=== PATIENT | male | born 1975 | race Caucasian/White ===

== ENCOUNTER 2020-09-25 08:31 | Emergency (ER) | payer BC ==
[2020-09-25 08:51] VITALS: BMI 35.9
[2020-09-25 11:25] VITALS: BP 98/66; PULSE 108; TEMP 99.1
[2020-09-25 11:47] LABS: CRYSTALS,SYNOVIAL FLUID POSITIVE
[2020-09-25 14:21] LABS: BF WBC & OTHER NUCLEATED CELLS 74794 /mm3; BODY FLUID MACROPHAGES 1 %; BODY FLUID MONOCYTE 9 %
== END 2020-09-25 12:31 | disposition home or self-care (01) ==
LOC: FER 08:31
PROC: 0S9C3ZZ Drainage of Right Knee Joint, Percutaneous Approach (ICD-10-PCS; principal; 2020-09-25)
DX: M10.9 Gout, unspecified (principal)
CPT/HCPCS: 87070; 87075; 87205; 89060; 99284-25